=== PATIENT | male | born 1940 | race Caucasian/White ===

== ENCOUNTER → 2020-12-21 | Outpatient (CLI) | payer MEDICARE | END | disposition home or self-care (01) | LOC: CFH 08:51 | PROVIDERS: ATTEND Nurse Practitioner Family | DX: J98.4 Other disorders of lung (principal); K80.20 Calculus of gallbladder without cholecystitis without obstruction; R06.02 Shortness of breath | CPT/HCPCS: 71250 ==

== ENCOUNTER → 2020-12-26 | Outpatient (CLI) | payer MEDICARE | END | disposition home or self-care (01) | LOC: CVU 15:38 | PROVIDERS: ATTEND Nurse Practitioner Family | DX: I08.1 Rheumatic disorders of both mitral and tricuspid valves (principal); I11.9 Hypertensive heart disease without heart failure; E78.5 Hyperlipidemia, unspecified; Z95.2 Presence of prosthetic heart valve | CPT/HCPCS: C8929; Q9957 ==